=== PATIENT | female | born 1930 | race Hispanic/Latino ===

== ENCOUNTER → 2017-10-22 | Outpatient (CLI) | payer MEDICARE ==
[~2017-10-22] MED LIST: ACET-66 PO; ALPR0.255 PO; APIX2.5T PO; CHOL500050 PO; CYCL30DR OU; FOLI1TAB15 PO; FURO20TA4 PO; FURO20TA6 PO; LEVO75TA10 PO; LOSA25TA21 PO; METH2.5T6 PO; ONDA4TAB7 PO; PRED5TAB PO; TOBR5DRO46 OU
== END | disposition home or self-care (01) ==
LOC: RAH 14:29
PROVIDERS: ATTEND Internal Medicine Medical Oncology
DX: R22.42 Localized swelling, mass and lump, left lower limb (principal); I13.0 Hypertensive heart and chronic kidney disease with heart failure and stage 1 through stage 4 chronic kidney disease, or unspecified chronic kidney disease; N18.3 Chronic kidney disease, stage 3 (moderate); I50.9 Heart failure, unspecified; E03.9 Hypothyroidism, unspecified; E78.5 Hyperlipidemia, unspecified; M81.0 Age-related osteoporosis without current pathological fracture; F41.9 Anxiety disorder, unspecified; Z79.1 Long term (current) use of non-steroidal anti-inflammatories (NSAID)
CPT/HCPCS: 93971

== ENCOUNTER 2017-11-13 10:30 | Emergency (ER) | payer MEDICARE ==
[~2017-11-13 10:30] MED LIST changes: -FURO20TA6 PO; -ONDA4TAB7 PO; -TOBR5DRO46 OU
[2017-11-13] MEDS ORDERED: DiphenhydrAMINE HCL 50 MG/ML VIAL ONE (11:13)
[2017-11-13] MEDS ORDERED: METHYLPREDNISOLONE SOD SUCC 40MG/ML 1ML ONE (11:13)
[2017-11-13] MEDS ORDERED: FAMOTIDINE/PF 20 MG/2 ML VIAL IV ONE (11:14)
[2017-11-13 11:21] LABS: CREATININE 1.2 mg/dL (0.5-1.5); POTASSIUM 4.4 mmol/L (3.5-5.1)
[2017-11-13 11:27] LABS: ALBUMIN 2.9 g/dL (3.5-5.0); BASOPHILS % (AUTO) 0.7 % (0.0-5.0); BILIRUBIN,TOTAL 0.5 mg/dL (0.2-1.0); EOSINOPHILS % (AUTO) 1.3 % (0.0-8.0); HEMATOCRIT 36.1 % (36-48); MEAN CORPUSCULAR HEMOGLOBIN 28.7 pg (27.0-33.0); MEAN CORPUSCULAR HGB CONC 34.2 g/dL (32.0-36.0); MEAN CORPUSCULAR VOLUME 83.9 fL (79-99); MONOCYTES % (AUTO) 2.1 % (3.0-13.0); NEUTROPHILS % (AUTO) 89.9 % (40.0-77.0); PLATELET COUNT (AUTO) 322 K/uL (130-400); RED BLOOD CELL COUNT(AUTO) 4.31 MIL/uL (4.00-5.50); RED CELL DISTRIBUTION WIDTH 16.8 % (11.0-15.5); TOTAL PROTEIN, SERUM 6.8 g/dL (6.0-8.3); WHITE BLOOD COUNT (AUTO) 14.3 K/uL (4.8-10.8)
[2017-11-13] MEDS ORDERED: HYDROXYZINE HCL 25 MG TABLET PO SCH (12:13)
[2017-11-13 13:45] LABS: BILIRUBIN,URINE Negative (NEGATIVE); COLOR,URINE Yellow (YELLOW); GLUCOSE, URINE (UA) Negative (NEGATIVE); KETONES,URINE Negative (NEGATIVE); LEUKOCYTE ESTERASE ,URINE Moderate (NEGATIVE); NITRATE,URINE Negative (NEGATIVE); OCCULT BLOOD,URINE Negative (NEGATIVE); PROTEIN,URINE Negative (NEGATIVE); UROBILINOGEN,URINE 0.2 mg/dL (0.2-1.0)
[2017-11-13 13:49] LABS: APPEARANCE,URINE CLEAR (CLEAR)
[2017-11-13 13:52] LABS: BACTERIA,URINE Rare /HPF (None Seen); RBC,URINE 0-1 /HPF (0-1); SQUAMOUS EPITHELIAL CELL,UR Rare /LPF (0-2)
== END 2017-11-13 17:51 | disposition home or self-care (01) ==
LOC: EDH 10:30
DX: T78.49XA Other allergy, initial encounter (principal); N30.90 Cystitis, unspecified without hematuria; I10 Essential (primary) hypertension; Z88.1 Allergy status to other antibiotic agents; Z88.2 Allergy status to sulfonamides; Z85.828 Personal history of other malignant neoplasm of skin; X58.XXXA Exposure to other specified factors, initial encounter
CPT/HCPCS: 36415; 80053; 81001; 85025; 96361; 96374; 96375; 99285; J1200; J2920; J3490

== ENCOUNTER 2017-12-21 10:13 | Emergency (ER) | payer MEDICARE ==
[2017-12-21 10:48] LABS: BASOPHILS % (AUTO) 0.2 % (0.0-5.0); EOSINOPHILS % (AUTO) 0.7 % (0.0-8.0); HEMATOCRIT 38.3 % (36-48); LYMPHOCYTES % (AUTO) 5.2 % (21.0-51.0); MEAN CORPUSCULAR HEMOGLOBIN 28.5 pg (27.0-33.0); MEAN CORPUSCULAR HGB CONC 33.1 g/dL (32.0-36.0); MEAN CORPUSCULAR VOLUME 85.9 fL (79-99); MONOCYTES % (AUTO) 2.8 % (3.0-13.0); NEUTROPHILS % (AUTO) 91.1 % (40.0-77.0); PLATELET COUNT (AUTO) 152 K/uL (130-400); RED BLOOD CELL COUNT(AUTO) 4.46 MIL/uL (4.00-5.50); RED CELL DISTRIBUTION WIDTH 18.7 % (11.0-15.5); WHITE BLOOD COUNT (AUTO) 15.2 K/uL (4.8-10.8)
[2017-12-21 10:53] LABS: CREATININE 1.1 mg/dL (0.5-1.5); POTASSIUM 4.9 mmol/L (3.5-5.1)
[2017-12-21 10:58] LABS: ALBUMIN 3.1 g/dL (3.5-5.0); BILIRUBIN,TOTAL 0.6 mg/dL (0.2-1.0); TOTAL PROTEIN, SERUM 6.9 g/dL (6.0-8.3)
[2017-12-21 11:21] LABS: INR 0.9 (0.85-1.15); PARTIAL THROMBOPLASTIN TIME 23.8 SEC (26.3-35.5); PROTHROMBIN TIME 9.3 SEC (9.6-11.6)
[2017-12-21 12:10] LABS: APPEARANCE,URINE Cloudy (CLEAR); BILIRUBIN,URINE Negative (NEGATIVE); COLOR,URINE Yellow (YELLOW); GLUCOSE, URINE (UA) Negative (NEGATIVE); KETONES,URINE Negative (NEGATIVE); LEUKOCYTE ESTERASE ,URINE Small (NEGATIVE); NITRATE,URINE Negative (NEGATIVE); OCCULT BLOOD,URINE Trace (NEGATIVE); PH,URINE 8.5 (5.0-8.0); PROTEIN,URINE Negative (NEGATIVE); UROBILINOGEN,URINE 0.2 mg/dL (0.2-1.0)
[2017-12-21 12:38] LABS: MUCUS,URINE Few LPF (None Seen)
[2017-12-21 12:39] LABS: BACTERIA,URINE Moderate /HPF (None Seen)
[2017-12-21] MEDS ORDERED: ACETAMINOPHEN 325 MG TAB ONE (12:51)
[2017-12-21] MEDS ORDERED: OCTYL 2-CYANOACRYLATE 1 EACH TP ONE (16:03)
== END 2017-12-21 16:33 | disposition home or self-care (01) ==
LOC: EDH 10:13
DX: S70.01XA Contusion of right hip, initial encounter (principal); I10 Essential (primary) hypertension; E03.9 Hypothyroidism, unspecified; M06.9 Rheumatoid arthritis, unspecified; Z88.2 Allergy status to sulfonamides; W01.0XXA Fall on same level from slipping, tripping and stumbling without subsequent striking against object, initial encounter; Y93.89 Activity, other specified; Y92.098 Other place in other non-institutional residence as the place of occurrence of the external cause; Y99.8 Other external cause status
CPT/HCPCS: 36415; 71045; 73502; 80053; 81001; 85025; 85610; 85730; 86850; 86900; 86901; 93005

== ENCOUNTER 2018-01-01 10:22 | Inpatient (IN) | payer MEDICARE ==
[~2018-01-01] VITALS: Ht 152.4 cm; Wt 49.3 kg
[2018-01-01] MEDS ORDERED: ONDANSETRON HCL MDV 20ML 2 MG/ML VIAL ONE ×2 (10:50→13:29)
[2018-01-01] MEDS ORDERED: SODIUM CHLORIDE 0.9% 500ML 500 ML IV ONE (10:50)
[2018-01-01 10:52] LABS: BASOPHILS % (AUTO) 0.8 % (0.0-5.0); EOSINOPHILS % (AUTO) 2.6 % (0.0-8.0); HEMATOCRIT 37.1 % (36-48); LYMPHOCYTES % (AUTO) 15.2 % (21.0-51.0); MEAN CORPUSCULAR HEMOGLOBIN 28.2 pg (27.0-33.0); MEAN CORPUSCULAR HGB CONC 33.1 g/dL (32.0-36.0); MEAN CORPUSCULAR VOLUME 85.2 fL (79-99); MONOCYTES % (AUTO) 3.1 % (3.0-13.0); NEUTROPHILS % (AUTO) 78.3 % (40.0-77.0); PLATELET COUNT (AUTO) 292 K/uL (130-400); RED BLOOD CELL COUNT(AUTO) 4.35 MIL/uL (4.00-5.50); RED CELL DISTRIBUTION WIDTH 18.5 % (11.0-15.5); WHITE BLOOD COUNT (AUTO) 11.7 K/uL (4.8-10.8)
[2018-01-01 11:00] LABS: APPEARANCE,URINE Cloudy (CLEAR); BILIRUBIN,URINE Negative (NEGATIVE); COLOR,URINE Yellow (YELLOW); GLUCOSE, URINE (UA) Negative (NEGATIVE); KETONES,URINE Negative (NEGATIVE); LEUKOCYTE ESTERASE ,URINE Moderate (NEGATIVE); NITRATE,URINE Negative (NEGATIVE); OCCULT BLOOD,URINE Negative (NEGATIVE); PH,URINE >=9.0 (5.0-8.0); PROTEIN,URINE Negative (NEGATIVE)
[2018-01-01 11:01] LABS: CREATININE 1.1 mg/dL (0.5-1.5); POTASSIUM 4.6 mmol/L (3.5-5.1)
[2018-01-01 11:07] LABS: ALBUMIN 2.6 g/dL (3.5-5.0); BILIRUBIN,DIRECT 0.2 mg/dL (0.0-0.3); TOTAL PROTEIN, SERUM 6.5 g/dL (6.0-8.3)
[2018-01-01 11:20] LABS: BACTERIA,URINE Many /HPF (None Seen); RBC,URINE 0-1 /HPF (0-1); SQUAMOUS EPITHELIAL CELL,UR Rare /HPF (0-2)
[2018-01-01 11:24] LABS: B-TYPE NATRIURETIC PEPTIDE 174 pg/mL (0-100)
[2018-01-01 11:41] LABS: INR 0.98 (0.85-1.15); PARTIAL THROMBOPLASTIN TIME 30.9 SEC (26.3-35.5); PROTHROMBIN TIME 10.3 SEC (9.6-11.6)
[2018-01-01] MEDS ORDERED: SODIUM CHLORIDE 0.9% 1000ML 1,000 ML IV ONE (13:29)
[2018-01-01] MEDS ORDERED: CEFTRIAXONE SODIUM 1 GM ONE (13:30)
[2018-01-01] MEDS ORDERED: SODIUM CHLORIDE 0.9% 100 ML IV ONE (13:30)
[2018-01-01] MEDS ORDERED: VANCOMYCIN PROTOCOL PER PHARMACY IV PRN (14:15)
[2018-01-01] MEDS ORDERED: HYDRALAZINE HCL 20 MG/ML VIAL IV PRN (14:15)
[2018-01-01] MEDS ORDERED: LACTULOSE 20 GM/30 ML UDCUP PO PRN (14:15)
[2018-01-01] MEDS ORDERED: ACETAMINOPHEN 325 MG TAB PO PRN (14:15)
[2018-01-01] MEDS ORDERED: COMPOUND IV REFRIGERATED 1 EACH IVSOLN MISC PRN (17:30)
[2018-01-01] MEDS: MEGESTROL 400 MG/10 ML UDCUP PO SCH (17:41)
[2018-01-01] MEDS: SODIUM CHLORIDE 0.9% 1000ML 1,000 ML IV SCH (17:44)
[2018-01-01] MEDS: VANCOMYCIN 750MG + NS 250 ML IV SCH ×2 (18:52)
[2018-01-01 20:00] VITALS: BP 144/74
[2018-01-02] VITALS (7 sets, daily range): BP systolic 119–140; BP diastolic 58–81
[2018-01-02] MEDS ORDERED: ONDA4TAB7 PO (01:35)
[2018-01-02] MEDS ORDERED: FURO20TA6 PO (01:35)
[2018-01-02] MEDS ORDERED: TOBR5DRO46 OU (01:36)
[2018-01-02] MEDS: SODIUM CHLORIDE 0.9% 1000ML 1,000 ML IV SCH ×2 (03:24→16:50)
[2018-01-02 03:56] LABS: HEMATOCRIT 34.8 % (36-48); MEAN CORPUSCULAR HEMOGLOBIN 28.8 pg (27.0-33.0); MEAN CORPUSCULAR VOLUME 84.5 fL (79-99); PLATELET COUNT (AUTO) 280 K/uL (130-400); RED BLOOD CELL COUNT(AUTO) 4.12 MIL/uL (4.00-5.50); WHITE BLOOD COUNT (AUTO) 11.7 K/uL (4.8-10.8)
[2018-01-02 04:22] LABS: CARBON DIOXIDE 20 mmol/L (21-32); CHLORIDE 95 mmol/L (101-111); CREATINE KINASE MB 2.7 ng/mL (0.5-3.6); CREATINE KINASE, TOTAL 48 U/L (21-232); CREATININE 0.9 mg/dL (0.5-1.5); GLOMERULAR FILTR. RATE CALC 63 mL/min (>60); GLUCOSE,RANDOM 59 mg/dL (70-105); MYOGLOBIN 76 ng/mL (10-92); SODIUM SERUM 128 mmol/L (136-145); TROPONIN I < 0.04 ng/mL (0.00-0.06); UREA NITROGEN, BLOOD 20 mg/dL (7-18)
[2018-01-02] MEDS: ONDANSETRON HCL MDV 20ML 2 MG/ML VIAL IV PRN ×2 (04:45→16:16)
[2018-01-02] MEDS: MEGESTROL 400 MG/10 ML UDCUP PO SCH ×2 (06:32→16:16)
[2018-01-02] MEDS ORDERED: CEFTRIAXONE 1GM/D5W 50ML 50 ML IV SCH (09:00)
[2018-01-02] MEDS: PANTOPRAZOLE SODIUM 40 MG TABLET.DR PO SCH (09:51)
[2018-01-02] MEDS: ENOXAPARIN SODIUM 40 MG/0.4 ML SYRINGE SQ SCH (09:52)
[2018-01-02] MEDS: CEFTRIAXONE SODIUM 1 GM IVP SCH (09:52)
[2018-01-02] MEDS: VANCOMYCIN 750MG + NS 250 ML IV SCH ×2 (17:55)
[2018-01-03] MEDS: SODIUM CHLORIDE 0.9% 1000ML 1,000 ML IV SCH (01:26)
[2018-01-03 03:00] VITALS: BP 132/63
[2018-01-03 04:06] LABS: HEMATOCRIT 31.8 % (36-48); MEAN CORPUSCULAR HEMOGLOBIN 29.1 pg (27.0-33.0); MEAN CORPUSCULAR HGB CONC 34.6 g/dL (32.0-36.0); MEAN CORPUSCULAR VOLUME 84.2 fL (79-99); PLATELET COUNT (AUTO) 246 K/uL (130-400); RED BLOOD CELL COUNT(AUTO) 3.78 MIL/uL (4.00-5.50); RED CELL DISTRIBUTION WIDTH 17.9 % (11.0-15.5); WHITE BLOOD COUNT (AUTO) 9.2 K/uL (4.8-10.8)
[2018-01-03 04:14] LABS: MAGNESIUM 1.7 mg/dL (1.80-2.40); POTASSIUM 4.1 mmol/L (3.5-5.1)
[2018-01-03] MEDS: MEGESTROL 400 MG/10 ML UDCUP PO SCH ×2 (06:40→16:05)
[2018-01-03 08:00] VITALS: BP 114/60
[2018-01-03] MEDS: PANTOPRAZOLE SODIUM 40 MG TABLET.DR PO SCH (09:01)
[2018-01-03] MEDS: ENOXAPARIN SODIUM 40 MG/0.4 ML SYRINGE SQ SCH (09:01)
[2018-01-03] MEDS: CEFTRIAXONE SODIUM 1 GM IVP SCH (09:04)
[2018-01-03 16:00] VITALS: BP 138/70
[2018-01-03] MEDS: VANCOMYCIN 750MG + NS 250 ML IV SCH ×2 (18:14)
[2018-01-03] MEDS ORDERED: MAGNESIUM 2GM PREMIX 50ML 50 ML IV SCH (18:15)
[2018-01-03 19:00] VITALS: BP 119/61
[2018-01-03 23:00] VITALS: BP 126/68
[2018-01-04] VITALS (7 sets, daily range): BP systolic 127–152; BP diastolic 58–80
[2018-01-04] MEDS: SODIUM CHLORIDE 0.9% 1000ML 1,000 ML IV SCH ×2 (03:31→09:00)
[2018-01-04 06:30] LABS: MEAN CORPUSCULAR HEMOGLOBIN 29.5 pg (27.0-33.0); MEAN CORPUSCULAR HGB CONC 34.6 g/dL (32.0-36.0); MEAN CORPUSCULAR VOLUME 85.3 fL (79-99); NUCLEATED RED BLOOD CELLS 0.1 % (0.0-0.19); PLATELET COUNT (AUTO) 244 K/uL (130-400); RED BLOOD CELL COUNT(AUTO) 3.75 MIL/uL (4.00-5.50); RED CELL DISTRIBUTION WIDTH 18.5 % (11.0-15.5); WHITE BLOOD COUNT (AUTO) 9.4 K/uL (4.8-10.8)
[2018-01-04 06:41] LABS: MAGNESIUM 2.3 mg/dL (1.80-2.40); POTASSIUM 4.2 mmol/L (3.5-5.1)
[2018-01-04] MEDS: MEGESTROL 400 MG/10 ML UDCUP PO SCH ×2 (07:49→18:18)
[2018-01-04] MEDS: CEFTRIAXONE SODIUM 1 GM IVP SCH (09:09)
[2018-01-04] MEDS: PANTOPRAZOLE SODIUM 40 MG TABLET.DR PO SCH (09:09)
[2018-01-04] MEDS: ENOXAPARIN SODIUM 40 MG/0.4 ML SYRINGE SQ SCH (09:10)
[2018-01-04] MEDS ORDERED: MEROPENEM 1GM IVPB PREMIXED 1 GM IV SCH (11:30)
[2018-01-04] MEDS ORDERED: RENAL DOSE IV PRN (11:30)
[2018-01-04] MEDS: MEROPENEM 1 GM VIAL IVP SCH (12:25)
[2018-01-04] MEDS ORDERED: VANCOMYCIN 1GM+NS 250ML 250 ML IV SCH (18:45)
[2018-01-05] MEDS: SODIUM CHLORIDE 0.9% 1000ML 1,000 ML IV SCH (00:27)
[2018-01-05] MEDS: MEROPENEM 1 GM VIAL IVP SCH ×2 (00:27→12:01)
[2018-01-05 03:00] VITALS: BP 138/70
[2018-01-05] MEDS: MEGESTROL 400 MG/10 ML UDCUP PO SCH (05:38)
[2018-01-05 06:31] LABS: POTASSIUM 4.1 mmol/L (3.5-5.1)
[2018-01-05 06:54] LABS: INR 0.94 (0.85-1.15); PROTHROMBIN TIME 9.9 SEC (9.6-11.6)
[2018-01-05 08:00] VITALS: BP 142/68
[2018-01-05] MEDS: PANTOPRAZOLE SODIUM 40 MG TABLET.DR PO SCH (09:20)
[2018-01-05 11:00] VITALS: BP 129/66
[2018-01-05 16:00] VITALS: BP 143/71
== END 2018-01-05 18:50 | DRG 690 ==
LOC: EDH 10:22 → EDHIP 13:30 → 3BH 15:56
PROVIDERS: ADMIT Internal Medicine Nephrology; ATTEND Internal Medicine Nephrology
DX: N39.0 Urinary tract infection, site not specified (principal); E44.0 Moderate protein-calorie malnutrition; S32.591A Other specified fracture of right pubis, initial encounter for closed fracture; C43.72 Malignant melanoma of left lower limb, including hip; L03.116 Cellulitis of left lower limb; E87.1 Hypo-osmolality and hyponatremia; I13.0 Hypertensive heart and chronic kidney disease with heart failure and stage 1 through stage 4 chronic kidney disease, or unspecified chronic kidney disease; E86.0 Dehydration; I50.9 Heart failure, unspecified; N18.3 Chronic kidney disease, stage 3 (moderate); E03.9 Hypothyroidism, unspecified; F41.1 Generalized anxiety disorder; M06.9 Rheumatoid arthritis, unspecified; B96.20 Unspecified Escherichia coli [E. coli] as the cause of diseases classified elsewhere; F41.9 Anxiety disorder, unspecified; B96.1 Klebsiella pneumoniae [K. pneumoniae] as the cause of diseases classified elsewhere; B96.89 Other specified bacterial agents as the cause of diseases classified elsewhere; B95.8 Unspecified staphylococcus as the cause of diseases classified elsewhere; Z16.12 Extended spectrum beta lactamase (ESBL) resistance; Z88.1 Allergy status to other antibiotic agents; Z88.8 Allergy status to other drugs, medicaments and biological substances; Z51.11 Encounter for antineoplastic chemotherapy; Z68.21 Body mass index [BMI] 21.0-21.9, adult; Z91.14 Patient's other noncompliance with medication regimen; Z90.710 Acquired absence of both cervix and uterus; Z98.49 Cataract extraction status, unspecified eye
CPT/HCPCS: 36415; 71045; 74176; 80048; 80076; 80202; 81001; 82550; 82553; 82948; 83735; 83874; 83880; 84484; 85025; 85027; 85610; 85730; 87040; 87070; 87076; 87077; 87088; 87186; 93005; 97039; A4218; J0696; J1650; J2185; J3370; J3475; J7030; J7040